=== PATIENT | female | born 1950 | race Caucasian/White ===

== ENCOUNTER → 2018-05-06 | Outpatient (CLI) | payer OTHER ==
[~2018-05-06] MED LIST: ACETAMINOPHEN-1 EAC1 PO; IBUPROFEN 800800 M1 PO; LOVASTATIN 20 M20 MG PO; METFORMIN HCL500 MG; TENORMIN25 MG PO; ZOFRAN ODT4 MG PO
== END ==
LOC: M.RAD 05-01 14:00
DX: Z12.31 Encounter for screening mammogram for malignant neoplasm of breast (principal)

== ENCOUNTER → 2020-01-11 | Outpatient (CLI) | payer MEDICARE | LOC: M.RAD 09:30 | PROVIDERS: ATTEND Nurse Practitioner Family | DX: Z12.31 Encounter for screening mammogram for malignant neoplasm of breast (principal) ==

== ENCOUNTER → 2020-01-22 | Outpatient (CLI) | payer MEDICARE | LOC: M.RAD 13:33 | PROVIDERS: ATTEND Nurse Practitioner Family | DX: Z13.820 Encounter for screening for osteoporosis (principal); M85.88 Other specified disorders of bone density and structure, other site ==

== ENCOUNTER → 2021-02-23 | Outpatient (CLI) | payer MEDICARE | LOC: M.RAD 12:30 | PROVIDERS: ATTEND Obstetrics & Gynecology | DX: Z12.31 Encounter for screening mammogram for malignant neoplasm of breast (principal) ==